=== PATIENT | male | born 1975 | race Caucasian/White ===

== ENCOUNTER 2023-12-19 15:31 | Emergency (ER) | payer OTHER ==
[2023-12-19] MEDS ORDERED: ACETAMINOPHEN 500 MG TAB ONE (16:07)
[2023-12-19] MEDS ORDERED: methocarbamoL 750 MG TAB ONE (16:07)
[2023-12-19] MEDS ORDERED: KETOROLAC 30 MG/ML INJ ONE (16:07)
[2023-12-19] MEDS ORDERED: METOCLOPRAMIDE 5 MG TAB ONE (16:08)
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
--- NOTE | 2023-12-19 17:45 | RAD REPORT ---
EXAM DESCRIPTION: Norberto Single View12/19/2023 4:45 pm CLINICAL HISTORY: Chest pain COMPARISON: none FINDINGS: The lungs appear clear of acute infiltrate. The heart is normal size IMPRESSION: No acute abnormalities displayed
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
[2023-12-19 18:18] VITALS: BP 128/78; TEMP 97.4; O2SAT 100
== END 2023-12-19 17:57 | disposition home or self-care (01) ==
LOC: ER 15:31
DX: S06.0X0A Concussion without loss of consciousness, initial encounter (principal); G44.319 Acute post-traumatic headache, not intractable; M54.50 Low back pain, unspecified; V49.49XA Driver injured in collision with other motor vehicles in traffic accident, initial encounter
CPT/HCPCS: 70450; 71045; 72125; 72131; 96372; 99284